=== PATIENT | female | born 1990 | race Caucasian/White ===

== ENCOUNTER 2016-07-10 01:54 | Inpatient (IN) | payer OTHER ==
[~2016-07-10] VITALS: Ht 162.6 cm; Wt 98.4 kg
[2016-07-10] MEDS ORDERED: Methylergonovine 0.2 mg/mL Inj IM PRN (02:40)
[2016-07-10] MEDS ORDERED: Oxytocin 10 Unit/mL Inj IM PRN (02:40)
[2016-07-10] MEDS ORDERED: Ondansetron 2 mg/mL 2 mL Inj IVPUSH PRN ×2 (02:40→04:25)
[2016-07-10] MEDS ORDERED: Sodium Chloride LOK Flush 10 mL Syringe IVFLUSH PRN (02:40)
[2016-07-10] MEDS ORDERED: Carboprost 250 mCg/mL Inj IM PRN (02:40)
[2016-07-10] MEDS ORDERED: Oxytocin 30 Units/500 mL LR 30 UNITS in IV Premix 1 EACH IV PRN ×2 (02:40→10:30)
[2016-07-10] MEDS ORDERED: Hemorrhage Kit, Post Partum XX ONE (02:40)
[2016-07-10] MEDS ORDERED: Lactated Ringer's 1,000 ML IV PRN (02:40)
[2016-07-10] MEDS ORDERED: fentaNYL-PF 50 mCg/mL 2 mL Inj IVPUSH PRN (02:40)
[2016-07-10 03:00] LABS: Mean Corpuscular Hemoglobin 27.1 pg (27.0-35.0); Mean Corpuscular Volume 81.7 fL (81-100)
[2016-07-10] MEDS: Vancomycin Inj 1,000 MG in IV Premix 1 EACH IV SCH ×2 (03:29→15:20)
[2016-07-10] MEDS ORDERED: Atropine 1 mg/10 mL (Code) Syringe IVPUSH PRN (04:25)
[2016-07-10] MEDS ORDERED: Lactated Ringer's 500 ML IV ONE (04:25)
[2016-07-10] MEDS ORDERED: EPHEDrine Sulfate 50 mg/mL Inj IVPUSH PRN (04:25)
--- NOTE | 2016-07-10 04:25 | PCM.HPANE ---
Patient Data Surgeon Admitting Provider:Greyson Veliz MD Attending Provider:Greyson Veliz MD Primary Care Physician:Greyson Veliz MD Other Provider: Reason for Visit LABOR LABOR Ht/WT & BMI Body Mass Index Allergies Coded Allergies: Penicillins (Verified Allergy, Unknown, 07/10/16) hives History Smoking Status: Never Smoker Stop/Bang Risk Assessment Category Category 1A: Patient has history of documented sleep apnea, and HAS NOT received any narcotic, sedative or anesthesia administration during this stay. Category 1B: Patient has history of documented sleep apnea, and HAS received any narcotic , sedative or anesthesia administration during this stay Category 2: Patient has SUSPECTED Obstructive Sleep Apnea, and HAS received any narcotic , sedative or anesthesia administration during this stay. Category 3: Patient has SUSPECTED Obstructive Sleep Apnea and HAS NOT received narcotic, sedative or anesthesia administration during this stay. Category 4: Outpatient in Procedural Areas with known sleep apnea or who screen positive for High Risk via the STOP/BANG questionnaire. Exam Exam General Appearance: Alert, Oriented X3, Cooperative, Moderate Distress HEENT/AIRWAY: MP 2 Lungs: Normal Air Movement Meds/Labs/Diagnostics Admission Meds Current Medications Vancomycin/0.9 % Sod Chloride/ Premix (Vancomycin Inj/ IV Premix) 200 ml @ 133.333 mls/hr Q12H IV Last administered on 07/10/16t 03:29; Start 07/10/16 at 03:00 Labs Test 07/10/16 02:45 07/10/16 03:11 White Blood Count 9.3th/mm3 (3.8-10.1) Red Blood Count 4.43mil/mm3 (3.90-5.20) Hemoglobin 12.0g/dL (12.0-15.6) Hematocrit 36.2% (35.0-46.0) Mean Corpuscular Volume 81.7fL (81-100) Mean Corpuscular Hemoglobin 27.1pg (27.0-35.0) Mean Corpuscular Hemoglobin Concent 33.1% (32.0-37.0) Red Cell Distribution Width 15.0% (12.3-15.4) Platelet Count 181bil/L (150-400) Hematology Comments Rbc Blood Urea Nitrogen 14mg/dL (6-20) Creatinine 0.60mg/dL (0.57-1.00) Uric Acid 6.9mg/dL (2.6-7.2) Aspartate Amino Transf (AST/SGOT) 16U/L (0-50) Alanine Aminotransferase (ALT/SGPT) 11U/L (0-32) Plan Impression Patient chart reviewed, patient interviewed and anesthestic plan with risks, benefits, and alternatives discussed, and informed consent obtained. ASA Physical Status: ASA2 Mod Systemic Disease Anesthetic Plan: Epidural Bene/Risks/Altern/Consents: Yes HP Complete Prior to Induction: Yes Devin Long MD Jul 10, 2016 04:25
--- NOTE | 2016-07-10 07:29 | PCM.ANEP1 ---
Post Anesthesia Phase 1 PACU Phase 1 Assessment Anesthetic Administered: Epidural Level of Alertness: Awake, talking INGRAM's with Equal Strength: Yes Pain: Yes Nausea or Vomiting: No Oxygen Delivery: Room Air Lungs: Normal Air Movement Devin Long MD Jul 10, 2016 07:29
[2016-07-10] MEDS: Lactated Ringer's 1,000 ML IV SCH ×2 (09:27→18:47)
--- NOTE | 2016-07-10 12:11 | HP ---
[address] [address] HISTORY AND PHYSICAL PATIENT: BRIANA SHAFER : 1990 MR#: [id number] ADMIT: 07/10/2016 JOB ID: [id number] DATE OF SERVICE: 07/10/2016 CHIEF COMPLAINT: Rupture of membranes at term. HISTORY OF PRESENT ILLNESS: A 26-year-old, 1, para 0, with a due date of July 05, 2016 based on both an LMP of September 29, 2015 and a concordant 12 week 5 day ultrasound done December 22, 2015 presents with spontaneous rupture of membranes with clear fluid about 1:00 this morning. She had increasing contractions, came to the Center where nursing reported she was 2 cm dilated. She was admitted and noted to have some elevated blood pressures with normal PIH labs and no associated symptoms. Since that time, she has received an epidural with improvement in her blood pressures but her contractions appear to have spaced out and she does not feel them at all with the epidural. ALLERGIES: PENICILLIN causes a rash/hives. CURRENT MEDICATIONS: vitamins 1 tablet daily. ISSUES: 1. PENICILLIN allergy. 2. Tobacco use. 3. Excess weight. 4. Inverted nipples. 5. GBS positive, clindamycin resistant. 6. from sperm donation. SOCIAL HISTORY: She is with a female partner. Chews tobacco. Has been trying to quit throughout the . Denies recreational drug or alcohol use. FAMILY HISTORY: Father with hypertension. Mother with Erin's thyroid issues. LABS: Blood type A positive. Rubella immune. Serology nonreactive. Hepatitis B surface antigen and HIV test negative. A1c at the beginning of was 5.8. Pap was normal in October 2015. A hematocrit at 26 and 6/7 weeks was 35.4, and a glucose tolerance test at that time showed a fasting of 85, a 1 hour 158, a 2 hour of 128, and an A1c of 5.6. A quad screen done in January was normal. Her antibody screen at the beginning of was negative. Her initial urine culture showed 25,000 to 50,000 mixed bacilio. She is GBS positive, screened June 02, 2016. PHYSICAL EXAMINATION: VITAL SIGNS: Initial blood pressures elevated generally in the 140s-150s/90-100. Since receiving her epidural, they have normalized to the 110s/60s. Pulse in the 90s. Temperature at 7:30 this morning was 98.2 Fahrenheit. A recheck at 9:20 this morning was 98.8 Fahrenheit. CERVIX: Cervical examination done by myself shows her 3 cm stretchable to 3.5 cm dilated, 80% effaced, -3 station. Lots of normal appearing bloody show. Vertex position. heart tracing shows a baseline in the 120s to 130s with numerous accelerations, at least 15 x 15, and no concerning decelerations, consistent with a category 1 tracing. Tocometer shows really no regular contractions by the external monitor. ASSESSMENT: 1. Gravid at 40 and 5/7th weeks. 2. Spontaneous rupture of membranes with clear fluid. 3. GBS positive, clindamycin resistant, and she has a PENICILLIN allergy. 4. Tobacco use. 5. Decreased uterine contractions, likely related to placement of an epidural. 6. Elevated blood pressure at term, improved with epidural. Her PIH labs returned normal. PLAN: IUPC placed. I reviewed the risks and benefits of oxytocin and given her essential absence of contractions I recommended starting this at 2 milliunits and increasing by two per protocol. Dr. David electronic scale tester for OB backup was consulted and concurs. Plan and expected course reviewed with patient and her partner. HAKEEM
[2016-07-10] MEDS: fentaNYL 2 mCg/mL-Bupiv 0.125% 100 ML EPIDURAL SCH ×2 (14:04→20:32)
[2016-07-10] MEDS ORDERED: SODIUM CHLORIDE 0.9% IV SCH ×2 (18:50→18:58)
[2016-07-10] MEDS ORDERED: GENTAMICIN IV SCH ×2 (18:50→18:58)
[2016-07-10] MEDS ORDERED: Acetaminophen IV 1,000 MG in IV Premix 1 EACH IV PRN (19:10)
--- NOTE | 2016-07-10 21:27 | PROG NOTE ---
[address] [address] PROGRESS NOTE PATIENT: BRIANA SHAFER : 1990 MR#: [id number] ADMIT: 07/10/2016 JOB ID: [id number] DATE: 07/10/2016 I returned a little after 8 p.m. to re-examine the patient. I was contacted several hour several hours earlier by Nursing because of a temperature to 39.3 Celsius. At that time, there was no associated tachycardia. I ordered IV gentamicin and IV acetaminophen, the latter of which has not yet arrived from pharmacy. The patient is feeling a bit more pelvic pressure than before. Her oxytocin is at 20 milliunits per hour. PHYSICAL EXAMINATION: Last vitals at 20:25: Blood pressure 138/84, maternal pulse 103, temperature at 19:57 was 39.9 Celsius. Cervical examination performed by myself shows her to be 9 cm dilated, vertex position, -1 station, 100% effaced. heart tracing initially showed brief periods of tachycardia up to the 180s and one mild heart rate deceleration after contraction that could be interpreted as a late (versus return to baseline) but was not recurrent. heart rate then returned back to baseline of 140s to 150s with good variability. Tocometer shows contractions regularly every 2 minutes. ASSESSMENT: 1. Gravid at 40 and 5/7 weeks. 2. Group B strep positive. 3. Fever with a large differential which includes chorioamnionitis. There is currently no uterine tenderness, foul smelling lochia or persistent tachycardia. 4. Rupture of membranes now a bit over 18 hours. 5. PENICILLIN allergic, hence my choice of vancomycin initially. PLAN: When contacted about the patient's elevated temperature, I added gentamicin and ordered IV acetaminophen, the latter is just starting now. Given reassuring tracing at present, I feel it prudent to proceed towards vaginal delivery. Dr. David, on-call for C -section backup, was contacted with details. Continue oxytocin augmentation at present unless signs of deteriorating heart rate tracing. Dr. Dick, on-call for Pediatrics, was also contacted to be present at delivery. [facility]ITAL[facility]
--- NOTE | 2016-07-11 02:22 | PROG NOTE ---
[address] [address] PROGRESS NOTE PATIENT: BRIANA SHAFER : 1990 MR#: [id number] ADMIT: 07/10/2016 JOB ID: [id number] DATE: 07/11/2016 LABOR PROGRESS NOTE: Patient pushed for approximately 90 minutes. Nursing felt that her pushing was becoming a bit less effective towards the end of this, and she was allowed to rest for about 30 minutes and resumed pushing now for the past 30 minutes for a total of approximately two hours. She did have a temperature elevation at 0031 to 38.4 Celsius, quickly responsive to re-dosing with acetaminophen. PHYSICAL EXAMINATION: Blood pressure 129/59, pulse 93, temperature at 1:21 a.m. 37.5 Celsius. Tired-appearing but conversant gravid woman. Cervical examination shows her to be +1 station, 100% effaced, completely dilated. There is some molding, but there is also descent of the skull with pushing. heart tracing shows a baseline in the 140s with brief decelerations during pushing with good recovery and continued variability. ASSESSMENT: 1. Gravid at 40-6/7 weeks. 2. Group B streptococcus positive. 3. Maternal fever, responsive to antipyretics; and she is now on both vancomycin and gentamicin. 4. A two-hour pushing episode; however, she has made progress. Although there is some molding, there is also descent of the skull with pushing. She continues to push effectively. PLAN: At this point, she would like to continue to push, and I feel it is reasonable to proceed towards vaginal delivery. Pediatrics will be present at delivery. If she fails to make further clinical progress/ descent or there is worsening of the heart tracing, would consider abandoning pushing episodes and moving towards section.
[2016-07-11] MEDS ORDERED: Sodium Citrate-Citric Acid 15 mL Solution ONE (02:35)
[2016-07-11] MEDS ORDERED: Lactated Ringer's 1,000 ML IV PRN (02:36)
[2016-07-11] MEDS ORDERED: fentaNYL-PF 50 mCg/mL 2 mL Inj IVPUSH PRN (02:40)
[2016-07-11] MEDS ORDERED: Dexamethasone 4 mg/mL Inj IVPUSH PRN (02:40)
[2016-07-11] MEDS ORDERED: Ondansetron 2 mg/mL 2 mL Inj IVPUSH PRN (02:40)
[2016-07-11] MEDS ORDERED: EPHEDrine Sulfate 50 mg/mL Inj IVPUSH PRN (02:40)
[2016-07-11] MEDS ORDERED: HYDROmorphone 1 mg/mL Inj IVPUSH PRN (02:40)
[2016-07-11] MEDS ORDERED: Morphine PF 1 mg/mL 10 mL Inj EPIDURAL ONE (02:40)
[2016-07-11] MEDS ORDERED: MetoCLOpramide 5 mg/mL 2 mL Inj IVPUSH PRN (02:40)
[2016-07-11] MEDS ORDERED: Atropine 0.4 mg/mL Inj IV PRN (02:40)
[2016-07-11] MEDS ORDERED: Clindamycin 900 mg/50 mL D5W IV ONE (03:10)
--- NOTE | 2016-07-11 03:10 | PROG NOTE ---
[address] [address] PROGRESS NOTE PATIENT: BRIANA SHAFER : 1990 MR#: [id number] ADMIT: 07/10/2016 JOB ID: [id number] DATE: 07/11/2016 Patient pushed another 30-40 minutes. Increased caput without a lot of progress of skull descent. I asked Dr. David on-call for CRITICAL CARE NURSE PRACTITIONER to examine the patient. She felt head position is occiput posterior and is not significantly descend with pushing despite good maternal pushing efforts. tracing remains in the 140s to 150s with variability. ASSESSMENT: 1. Failure of descent with suspected cephalopelvic disproportion versus positioning. 2. Prolonged rupture of membranes. 3. Maternal fever, treated for possible chorioamnionitis with vancomycin and gentamicin. 4. Group B Streptococcus positive. PLAN: is recommended. Discussed risks and benefits. Dr. David is at bedside. Total time spent in face to face management of this patient's labor was 3 hours. [facility]
[2016-07-11] MEDS ORDERED: Oxytocin 30 Units/500 mL LR 30 UNITS in IV Premix 1 EACH IV PRN (04:45)
[2016-07-11] MEDS ORDERED: Methylergonovine 0.2 mg/mL Inj IM PRN (04:45)
[2016-07-11] MEDS ORDERED: Sodium Chloride LOK Flush 10 mL Syringe IVFLUSH PRN (04:45)
[2016-07-11] MEDS ORDERED: hydrOXYzine Pamoate 25 mg Capsule PO PRN (04:45)
[2016-07-11] MEDS ORDERED: LANOlin HPA 7 Gm Ointment TOPICAL PRN (04:45)
[2016-07-11] MEDS ORDERED: Carboprost 250 mCg/mL Inj IM PRN (04:45)
[2016-07-11] MEDS ORDERED: Acetaminophen IV 1,000 MG in IV Premix 1 EACH IV PRN (04:45)
[2016-07-11] MEDS ORDERED: Hemorrhage Kit, Post Partum XX ONE (04:45)
[2016-07-11] MEDS ORDERED: Oxytocin 10 Unit/mL Inj IM PRN (04:45)
--- NOTE | 2016-07-11 04:46 | PCM.ANEP2 ---
Post Anesthesia Evaluation ASA/CMS Post Anesthesia VS in Patient's Normal Range?: Yes Resp Stable; Airway Patent?: Yes CV Function & Hydration Stable: Yes Mental Status Recovered?: Yes Pain control Satisfactory?: Yes N/V Control Satisfactory?: Yes Ez Molina MD Jul 11, 2016 04:46
--- NOTE | 2016-07-11 04:46 | PCM.ANEP1 ---
Post Anesthesia Phase 1 PACU Phase 1 Assessment Anesthetic Administered: Epidural Level of Alertness: Awake, talking INGRAM's with Equal Strength: Yes Pain: Yes Nausea or Vomiting: No Oxygen Delivery: Room Air Lungs: Normal Air Movement Ez Molina MD Jul 11, 2016 04:46
[2016-07-11] MEDS: Lactated Ringer's 1,000 ML IV SCH ×3 (07:00→19:56)
[2016-07-11] MEDS ORDERED: EPHEDrine/NS 5 mg/mL 5 mL Syringe ONE (07:29)
[2016-07-11] MEDS ORDERED: Phenylephrine/NS 100 mCg/mL 10 mL Syringe IVPUSH ONE (07:29)
[2016-07-11] MEDS ORDERED: Propofol 10,000 mCg/mL 20 mL Inj ONE (07:29)
[2016-07-11] MEDS ORDERED: Morphine PF 1 mg/mL 10 mL Inj ONE (07:29)
[2016-07-11] MEDS ORDERED: MetoCLOpramide 5 mg/mL 2 mL Inj ONE (07:29)
[2016-07-11] MEDS ORDERED: Oxytocin 10 Unit/mL Inj ONE (07:29)
[2016-07-11] MEDS ORDERED: Ondansetron 2 mg/mL 2 mL Inj ONE (07:29)
[2016-07-11] MEDS ORDERED: LIDOCAINE 1% ONE (07:29)
[2016-07-11] MEDS: Ascorbic Acid 500 mg Tablet PO SCH ×2 (08:00→20:05)
[2016-07-11] MEDS ORDERED: Clindamycin Inj 900 MG in IV Premix 1 EACH IV SCH (08:30)
--- NOTE | 2016-07-11 10:25 | OP ---
[address] [address] OPERATIVE REPORT PATIENT: BRIANA SHAFER : 1990 MR#: [id number] ADMIT: 07/10/2016 JOB ID: [id number] DATE OF SURGERY: 07/11/2016 PREOPERATIVE DIAGNOSIS(ES): 1. A 26-year-old, 1, para 0, at 40 weeks and 6 days gestational age by last menstrual period, confirmed by 12 week ultrasound. Presented with spontaneous rupture of membranes. Received Pitocin augmentation. Progressed to fully dilated and pushed for 3 hours with arrest of descent at -2 station, and significant caput succedaneum formation. 2. Clinical chorioamnionitis managed intrapartum with vancomycin and gentamicin by Dr. Veliz. Discussed with the patient, agreed to proceed with a primary section. POSTOPERATIVE DIAGNOSIS(ES): 1. A 26-year-old, 1, para 0, at 40 weeks and 6 days gestational age by last menstrual period, confirmed by 12 week ultrasound. Presented with spontaneous rupture of membranes. Received Pitocin augmentation. Progressed to fully dilated and pushed for 3 hours with arrest of descent at -2 station, and significant caput succedaneum formation. 2. Clinical chorioamnionitis managed intrapartum with vancomycin and gentamicin by Dr. Veliz. Discussed with the patient, agreed to proceed with a primary section. PROCEDURE: Primary low transverse . SURGEON: Charity David MD CONTACT MANAGER: Greyson Veliz MD ANESTHESIA: Epidural. ESTIMATED BLOOD LOSS: 600 cc. INTRAVENOUS FLUIDS: 1600 cc of crystalloid. URINE OUTPUT: 250 cc of clear urine. COMPLICATIONS: None. SPECIMEN REMOVED: Placenta, sent to Pathology for chorioamnionitis. INTRAOPERATIVE FINDINGS: 1. Normal fallopian tubes and ovaries bilaterally. 2. Single viable, male , with APGARS 8/9, weight of 3095 g. 3. Baby was in left occipito-posterior position with significant caput succedaneum. 4. Meconium observed. DESCRIPTION OF PROCEDURE: After the risks, benefits, and alternatives of the procedure were discussed with the patient, informed consent signed, the patient was moved to the OR with IV running. After epidural anesthesia was found to be adequate, the patient was prepped and draped in the normal sterile fashion. Pfannenstiel skin incision was made with a scalpel 2 cm above the symphysis pubis and carried down to the underlying rectus fascia with the scalpel. Fascial incision extended bilaterally with the Perales scissors. Inferior aspect of fascial incision was grasped with Jade clamps, elevated, tented up, and rectus muscle dissected off bluntly. Attention was then turned to the superior aspect of fascial incision, which in a similar fashion was grasped with Jade clamps, elevated, tented up, rectus muscle dissected off bluntly. Rectus muscles were then in the midline. Peritoneum identified, entered bluntly with traction counter traction. Upon good visualization of the uterine peritoneum, a peritoneal incision extended superiorly and inferiorly. Bladder blade inserted. The vesicouterine peritoneum identified, entered sharply with the Metzenbaum scissors. Bladder flap created digitally. Bladder blade reinserted. Uterus incised in midline with scalpel and uterine incision extended bilaterally with bandage scissors. head delivered through the hysterotomy ; was found in left occiput to posterior position with significant kaput succedaneum. The rest of the body delivered. Delayed cord clamping allowed for 60 seconds. is handed off to awaiting valve inspector. Cord blood collected. Placenta followed spontaneously. The uterus exteriorized, cleared of all clots and debris. The uterine incision repaired in two layers, first layer of continuous locked fashion of 0-Vicryl suture. This was followed by repairing extension in the middle of the hysterotomy in a continuous locked fashion with 0-Vicryl suture, and then a second layer of the hysterotomy repair was done in an imbrication fashion with 0-Vicryl suture. Please note that the incision was in the lower uterine segment as a low transverse incision. Good hemostasis was assured. Suction irrigation confirmed hemostasis. Uterus returned back to the abdomen. Extra sutures of 2-0 chromic were performed at the level of the hysterotomy repair and the extension for confirming hemostasis. Suction irrigation confirmed hemostasis. All instruments removed from the patient's abdomen. Muscles approximated in the middle with interrupted sutures of 2-0 chromic. Fascia closed in a continuous fashion with 0-Vicryl suture. Subcutaneous layer closed with interrupted sutures of 2-0 chromic. Skin closed in a subcuticular fashion with 4-0 Vicryl suture. Pressure dressing applied. The patient tolerated the procedure well. Sponge, lap, and instrument counts were correct x2. The patient was recovering in a stable condition. Dr. David was present and scrubbed for the entire procedure. Will continue with gentamicin and clindamycin for 24 hours postop for endometritis prophylaxis. HAKEEM
[2016-07-11] MEDS: SODIUM CHLORIDE 0.9% IV SCH ×2 (10:56→18:58)
[2016-07-11] MEDS: GENTAMICIN IV SCH ×2 (10:56→18:58)
[2016-07-11] MEDS: Clindamycin Inj 900 MG in IV Premix 1 EACH IV SCH ×2 (11:53→19:56)
[2016-07-11] MEDS: oxyCODONE-Acetamin 5-325 mg Tablet PO PRN (20:06)
[2016-07-12] MEDS: oxyCODONE-Acetamin 5-325 mg Tablet PO PRN ×5 (01:52→19:57)
[2016-07-12] MEDS: Lactated Ringer's 1,000 ML IV SCH (03:43)
[2016-07-12] MEDS: Clindamycin Inj 900 MG in IV Premix 1 EACH IV SCH (03:44)
[2016-07-12 07:05] LABS: Mean Corpuscular Hemoglobin 26.4 pg (27.0-35.0); Mean Corpuscular Volume 82.2 fL (81-100)
[2016-07-12] MEDS: Ascorbic Acid 500 mg Tablet PO SCH (08:12)
--- NOTE | 2016-07-12 09:03 | PROG NOTE ---
[address] [address] PROGRESS NOTE PATIENT: BRIANA SHAFER : 1990 MR#: [id number] ADMIT: 07/10/2016 JOB ID: [id number] DATE: 07/12/2016 SUBJECTIVE: The patient is doing well this morning. Voiding, ambulating, tolerating some p.o. intake. Having some issues with . consult is working with the patient. Denied any chest pain, shortness of breath, dizziness, headaches, visual symptoms. OBJECTIVE: Vital signs are 134/86 for blood pressure. Respirations are 18, pulse is 97, temperature 36.4 degrees centigrade. Pulse ox is 98% on room air. Heart is regular rate and rhythm. Positive S1, S2. Lungs clear to auscultation bilaterally. Abdomen: Firm uterine fundus palpated at 1 cm below the umbilicus. Nontender uterine fundus. Nondistended abdomen. Positive bowel sounds. Incision is clean, dry and intact with Steri-Strips in place. Lower extremities: No calf tenderness appreciated bilaterally. H and H this morning is 7.1 and 22.1. Platelets are 150. White blood count is 16.3. ASSESSMENT AND PLAN: The patient is 26-year-old 1, para 1, postop day #1 status post primary low transverse . Afebrile with stable vital signs. 1- Anemia, iron and vitamin C supplementation started. 2- consult for issues with inverted nipples. 3- continue with postop care. The plan was discussed with the Patient who agreed to the above. HAKEEM
[2016-07-13] MEDS: oxyCODONE-Acetamin 5-325 mg Tablet PO PRN ×3 (03:42→20:52)
[2016-07-13] MEDS ORDERED: Oxytocin 30 Units/500 mL LR 30 UNITS in IV Premix 1 EACH IV PRN ×2 (05:26→05:27)
[2016-07-13] MEDS ORDERED: Lactated Ringer's 1,000 ML IV PRN (05:26)
[2016-07-13] MEDS ORDERED: Lactated Ringer's 1,000 ML IV SCH (05:28)
[2016-07-13 07:25] LABS: BASOPHILS % (AUTO) 0.2 % (0-3); EOSINOPHILS % (AUTO) 2.7 % (0-5); MONOCYTES % (AUTO) 6.1 % (4-12); Mean Corpuscular Hemoglobin 27.2 pg (27.0-35.0); Mean Corpuscular Volume 83.3 fL (81-100); NEUTROPHILS % (AUTO) 77.3 % (40-74); Platelet Count 168 bil/L (150-400)
[2016-07-13] MEDS: Ascorbic Acid 500 mg Tablet PO SCH (08:02)
[2016-07-13] MEDS ORDERED: 0.9% Sodium Chloride 250 ML IV PRN (13:15)
[2016-07-13] MEDS ORDERED: diphenhydrAMINE 50 mg Capsule PO PRN (13:35)
--- NOTE | 2016-07-13 13:45 | PROG NOTE ---
[address] [address] PROGRESS NOTE PATIENT: BRIANA SHAFER : 1990 MR#: [id number] ADMIT: 07/10/2016 JOB ID: [id number] DATE: 07/13/2016 SUBJECTIVE: The patient is complaining of headache and tachycardia confirmed upon examination. She denied any chest pain, shortness of breath, visual symptoms. OBJECTIVE: Vital signs are 137/81 for blood pressure. Respirations are 16. Pulse is 110. Temperature 36.6. Heart is tachycardia with positive S1-S2. Lungs clear to auscultation bilaterally. Abdomen firm. Uterine fundus palpated at 1 cm below the umbilicus. Incision is clean, dry, and intact with appropriate tenderness around the incision. Steri-Strips in place. Perineum: No active bleeding. Lower extremities 2+ pitting edema up to knees bilaterally. No calf tenderness bilaterally. H and H this morning is 6.7 and 20.5, down from 7.1 and 22.1 yesterday. Platelets are 168. White blood count is 13.9. PLAN: A 26-year-old 1, para 1, postop day #2 status post primary low transverse . 1. Severe anemia with symptoms. Will start with two units blood transfusion of packed red blood cells. Discussed with the patient. The patient consented and will premedicate with Tylenol and Benadryl. 2. CBC post transfusion and in the morning. 3. continue with postop care. HAKEEM
[2016-07-13 22:58] LABS: BASOPHILS % (AUTO) 0.2 % (0-3); EOSINOPHILS % (AUTO) 2.8 % (0-5); MONOCYTES % (AUTO) 6.3 % (4-12); Mean Corpuscular Hemoglobin 27.5 pg (27.0-35.0); Mean Corpuscular Volume 83.8 fL (81-100); NEUTROPHILS % (AUTO) 74.4 % (40-74); Platelet Count 213 bil/L (150-400)
[2016-07-14] MEDS: oxyCODONE-Acetamin 5-325 mg Tablet PO PRN ×2 (00:57→08:54)
[2016-07-14 07:32] LABS: BASOPHILS % (AUTO) 0.3 % (0-3); EOSINOPHILS % (AUTO) 2.8 % (0-5); MONOCYTES % (AUTO) 6.4 % (4-12); Mean Corpuscular Hemoglobin 27.7 pg (27.0-35.0); Mean Corpuscular Volume 83.8 fL (81-100); NEUTROPHILS % (AUTO) 69.1 % (40-74); Platelet Count 211 bil/L (150-400)
[2016-07-14] MEDS: Ascorbic Acid 500 mg Tablet PO SCH (08:53)
--- NOTE | 2016-07-14 12:38 | PCM.DIOB ---
Obstetrical Disch Instruction Date of Service: Jul 14, 2016 Dates of Hospitalization Date of Hospital Admission Jul 10, 2016 at 02:10 Providers Admitting Physician: Greyson Veliz MD Primary Care Physician: Greyson Veliz MD Attending Physician: Greyson Veliz MD Discharge Diagnosis Discharge Diagnosis POD#3 S/P PLTCS, severe anemia ( S/P blood trnasfusion of 2 units of PRBCs). Problems: Diet Discharge Diet: No restrictions Activity Discharge Activity-General: Pelvic Rest for 6 weeks, No lifting >10 pounds for 4-6 weeks Dressing and Incisional Care Dressing Care: Keep dressing clean, dry & intact Hygiene: May shower Follow Up Plan Follow-up Provider (F9): Charity David MD Follow-up appointment: Weeks (2) Call your provider for: Fever or Chills, Shortness of breath, Heavy vaginal bleeding, Other (excessive pain not controlled with pain medications. Abnormal wound discharge.) Charity David MD Jul 14, 2016 12:38
[2016-07-14] MEDS ORDERED: PREN-56 PO (12:43)
[2016-07-14] MEDS ORDERED: IBUP-1827 PO (12:43)
[2016-07-14] MEDS ORDERED: OXYC1TAB24 PO (12:43)
[2016-07-14] MEDS ORDERED: FERR-74 PO (12:43)
[2016-07-14] MEDS ORDERED: Ascorbic Acid PO (12:43)
[2016-07-14] MEDS ORDERED: DOCU-41 PO (12:43)
[2016-07-14 13:05] VITALS: BP 134/93; PULSE 76; RESP 16
--- NOTE | 2016-07-14 13:11 | DIS ---
[address] [address] DISCHARGE SUMMARY PATIENT: BRIANA SHAFER : 1990 MR#: [id number] ADMIT: 07/10/2016 JOB ID: [id number] DIS: 07/14/[address] Veliz at 40 weeks and 5 days with spontaneous rupture of membranes. DISCHARGE DIAGNOSIS: Postoperative day #3 status post primary low transverse for arrest of descent and chorioamnionitis. HOSPITAL COURSE: For further details, please refer to the fully dictated notes. The patient also had diagnosis of severe anemia. This required 2 units of blood transfusion with adequate increase of her post transfusion H and H. For further details, please refer to the fully dictated notes. On the day of discharge, the patient had no complaints, voiding, ambulating, tolerating p.o. intake. without difficulties. OBJECTIVE: Vital signs are blood pressure is 125/79 followed by blood pressure 134/93. This was the only elevated blood pressure. The patient denied any signs or symptoms of preeclampsia. Pulse is 76, respirations are 18, temperature 36.5 degrees centigrade. Heart is regular rate and rhythm. Positive S1, S2. Lungs clear to auscultation bilaterally. Abdomen firm uterine fundus palpated at 1 cm below the umbilicus. Nontender. Positive bowel sounds. Incision is clean, dry and intact with Steri-Strips in place. Appropriate tenderness around the incision. Perineum: No active bleeding. Lower extremities: No calf tenderness appreciated bilaterally. The 2+ pitting edema bilaterally up to knees still existing. Patient's H and H dropped to 6.7 and 20.5 yesterday. This was followed by blood transfusion of 2 units of packed red blood cells. Post transfusion H and H was 9 and 27.4 at 2242 last night and this morning H and H stayed stable at 8.9 and 26.9. Platelets are 211. White blood count is 11.0, stable labs. DISCHARGE PLAN: The patient will be discharged home in stable condition. Will followup with Dr. David's or Dr. Veliz's office in two weeks. Instructed to have nothing in the vagina for six weeks. No heavy lifting more than baby's weight. Instructed to call for fever, chills, severe abdominal pain uncontrolled with pain medication, heavy vaginal bleeding, abnormal wound discharge or any other concerning symptoms. DISCHARGE MEDICATION: 1. Percocet 5/325, one tablet every 4 hours as needed for severe pain. 2. Ibuprofen 600 mg every 6 hours for moderate pain. 3. Colace 100 mg twice daily. 4. Ferrous sulfate 325 mg twice daily. 5. Vitamin C 500 mg twice daily. 6. vitamins once daily. The patient understood the discharge instructions. She will comply with her discharge plan. HAKEEM
--- NOTE | 2016-07-14 16:13 | PATH ---
SURGICAL PATHOLOGY Attending Physician:Charity David MD CASE STATUS: Signed Out PATIENT NAME: BRIANA SHAFER PID: [id number] : 1990 DATE COLLECTED:07/11/2016 15:43 SPECIMEN: Placenta CLINICAL HISTORY: PLACENTA FOR CHORIOAMNIONITIS 40 WEEKS GESTATION 1).PLACENTA FINAL DIAGNOSIS: 1.PLACENTA: CHOW PLACENTA WITH MARKED ACUTE CHORIOAMNIONITIS AND ACUTE FUNISITIS. MULTIPLE SMALL INFARCTS INVOLVING LESS THAN 10% OF THE MATERNAL SURFACE. ICD10 CODE O41.1 O43.8 GROSS DESCRIPTION: The specimen is received in formalin, labeled with the patient's name and consists of an intact placenta and includes placental disc (410 he 11 g, 15.0 x 15.0 x 3.5 cm), umbilical cord (length-15.5 cm, diameter-0.9 x 0.8 cm) and membranes. The membranes are ruptured 12.7 cm from the free edge of the placenta and are semi-translucent. The umbilical cord is attached 4.5 cm from the edge of the placenta and contains 3 vessels. The surface is smooth and shiny with no evidence of meconium. The maternal surface is dark maroon with normal cotyledon formation. Multiple ames-yellow firm opacities (1.3 x 1.1 cm-1.4 x 0.9 cm) are identified and involve less than 10% of the maternal surface. The placental disc is spongy and contains multiple pale yellow solid firm well-circumscribed fibrous nodules (1.7 x 1.5 x 0.9 cm-2.2 x 1.8 x 1.5 cm) involving approximately 25% of the placental disc. No other nodules, masses or lesions are identified. Section code: (A) edge of placenta with membranes, umbilical cord; (B, C-D, E-F, G-H, I-J, K-L) placenta, 6 full thickness sections. 07/13/16 JM MICRO DESCRIPTION: See diagnosis. ICD-9 CODES: CPT CODES: 1: 91724 Electronically Signed Out Tatiana Azul MD [facility], [place] [address] Technical component performed at [facility], [facility] [address], [address]
== END 2016-07-14 14:17 | disposition home or self-care (01) | DRG 765 ==
LOC: FBCO 01:54 → FBC 02:10
PROVIDERS: ADMIT Family Medicine; ATTEND Family Medicine
PROC: 10H073Z Insertion of Monitoring Electrode into Products of Conception, Via Natural or Artificial Opening (ICD-10-PCS; 2016-07-10)
PROC: 10D00Z1 Extraction of Products of Conception, Low, Open Approach (ICD-10-PCS; principal; 2016-07-11 02:55)
PROC: 30233N1 Transfusion of Nonautologous Red Blood Cells into Peripheral Vein, Percutaneous Approach (ICD-10-PCS; 2016-07-13)
DX: O62.1 Secondary uterine inertia (principal); O41.1230 Chorioamnionitis, third trimester, not applicable or unspecified; O75.2 Pyrexia during labor, not elsewhere classified; D62 Acute posthemorrhagic anemia; O26.03 Excessive weight gain in pregnancy, third trimester; F17.220 Nicotine dependence, chewing tobacco, uncomplicated; Z3A.40 40 weeks gestation of pregnancy; O99.820 Streptococcus B carrier state complicating pregnancy; O33.9 Maternal care for disproportion, unspecified; O77.0 Labor and delivery complicated by meconium in amniotic fluid; O99.03 Anemia complicating the puerperium; Z37.0 Single live birth; Z68.37 Body mass index [BMI] 37.0-37.9, adult